=== PATIENT | female | born 1955 | race Caucasian/White ===

== ENCOUNTER → 2016-10-11 | Outpatient (CLI) | payer MEDICARE, MEDICAID ==
[~2016-10-11] MED LIST: BUSPAR5 MG PO; CLONIDINE HCL0.2 MG PO; GLIPIZIDE XL2.5 M1 PO; LISINOPRIL HCTZ1 TA1 PO; METHIMAZOLE5 M1 PO; NAPROSYN500 MG PO; TENORMIN50 MG PO; VITAMIN D5000 I3 PO
[2016-10-11 11:56] LABS: BASO # 0.1 10*3/uL (0.0-0.1); BASO % 0.6 % (0.0-1.0); EOS # 0.3 10*3/uL (0.0-0.4); EOS % 2.7 % (1.0-4.0); HEMATOCRIT 42.4 % (37.0-47.0); HEMOGLOBIN 14.1 g/dl (12.0-16.0); LYMPH % 30.4 % (27.0-41.0); MEAN CELL VOLUME 92.4 fl (81.0-99.0); MEAN CORPUSCULAR HGB 30.7 pg (27.0-31.0); MEAN CORPUSCULAR HGB CONC 33.3 g/dl (33.0-37.0); MEAN PLATELET VOLUME 9.9 fl (9.6-12.3); MONO # 0.8 10*3/uL (0.1-1.0); MONO % 8.3 % (3.0-9.0); NEUT # 5.7 10*3/uL (2.3-7.9); NEUT % 57.7 % (47.0-73.0); PLATELET COUNT AUTOMATED 237 10*3/uL (130-400); RED BLOOD COUNT 4.59 10*6/uL (4.10-5.10); RED CELL DISTRI WIDTH 12.8 % (0-14.5); WHITE BLOOD COUNT 9.9 10*3/uL (4.8-10.8)
[2016-10-11 12:14] LABS: HEMOGLOBIN A1c 8.3 % (4.8-5.6)
[2016-10-11 12:20] LABS: ALBUMIN 3.5 gm/dl (3.1-4.5); BILIRUBIN, TOTAL 0.2 mg/dl (0.2-1.0); TOTAL PROTEIN 7.6 gm/dL (6.4-8.2)
[2016-10-11 12:26] LABS: CHOLESTEROL 212 mg/dL (<200); HDL CHOLESTEROL 34 mg/dl (40-60); TRIGLYCERIDES 431 mg/dl (<150)
[2016-10-11 12:27] LABS: THYROID STIM HORMONE (HS) < 0.005 uIU/ml (0.358-4.75)
== END | disposition home or self-care (01) ==
LOC: LAB 11:20
PROVIDERS: Internal Medicine
DX: E11.65 Type 2 diabetes mellitus with hyperglycemia (principal); I10 Essential (primary) hypertension; E05.90 Thyrotoxicosis, unspecified without thyrotoxic crisis or storm; E78.5 Hyperlipidemia, unspecified

== ENCOUNTER → 2016-10-25 | Outpatient (CLI) | payer MEDICARE, MEDICAID ==
[2016-10-27 07:05] LABS: THYROID PEROXIDASE (TPO) AB 13 IU/mL (0-34)
[2016-10-27 11:04] LABS: THYROGLOBULIN ANTIBODY <1.0 IU/mL (0.0-0.9)
== END | disposition home or self-care (01) ==
LOC: LAB 12:32
PROVIDERS: Internal Medicine
DX: E11.9 Type 2 diabetes mellitus without complications (principal); E05.90 Thyrotoxicosis, unspecified without thyrotoxic crisis or storm

== ENCOUNTER → 2017-05-02 | Outpatient (CLI) | payer MEDICARE, MEDICAID ==
[2017-05-02 11:44] LABS: BASO % 0.4 % (0.0-1.0); EOS # 0.2 10*3/uL (0.0-0.4); EOS % 2.7 % (1.0-4.0); HEMATOCRIT 38.2 % (37.0-47.0); HEMOGLOBIN 12.5 g/dl (12.0-16.0); LYMPH # 1.8 10*3/uL (1.3-4.4); LYMPH % 22.3 % (27.0-41.0); MEAN CELL VOLUME 92.3 fl (81.0-99.0); MEAN CORPUSCULAR HGB 30.2 pg (27.0-31.0); MEAN CORPUSCULAR HGB CONC 32.7 g/dl (33.0-37.0); MEAN PLATELET VOLUME 9.8 fl (9.6-12.3); MONO # 0.6 10*3/uL (0.1-1.0); MONO % 6.9 % (3.0-9.0); NEUT # 5.4 10*3/uL (2.3-7.9); NEUT % 67.3 % (47.0-73.0); PLATELET COUNT AUTOMATED 222 10*3/uL (130-400); RED BLOOD COUNT 4.14 10*6/uL (4.10-5.10); RED CELL DISTRI WIDTH 12.4 % (0-14.5); WHITE BLOOD COUNT 8.1 10*3/uL (4.8-10.8)
[2017-05-02 12:06] LABS: HEMOGLOBIN A1c 7.7 % (4.8-5.6)
[2017-05-02 12:12] LABS: ALBUMIN 3.3 gm/dl (3.1-4.5); ALKALINE PHOSPHATASE 113 U/L (45-117); BILIRUBIN, TOTAL 0.2 mg/dl (0.2-1.0); BUN 33 mg/dl (7-24); CARBON DIOXIDE 25 mmol/L (21-32); CHLORIDE 106 mmol/L (98-107); CHOLESTEROL 207 mg/dL (<200); EST GLOM FILT AFRICAN AMERICAN 36 ml/min; GLUCOSE 264 mg/dL (65-99); HDL CHOLESTEROL 33 mg/dl (40-60); LDL CHOLESTEROL 101 mg/dL (9-159); SGOT/AST 15 IU/L (3-35); SGPT/ALT 16 U/L (12-78); SODIUM 138 mmol/L (136-145); TOTAL PROTEIN 7.6 gm/dL (6.4-8.2); TRIGLYCERIDES 366 mg/dl (<150); VLDL CHOLESTEROL 73 mg/dL (6-40)
[2017-05-02 12:21] LABS: THYROID STIM HORMONE (HS) < 0.005 uIU/ml (0.358-4.75)
== END | disposition home or self-care (01) ==
LOC: LAB 11:17
PROVIDERS: Family Medicine
DX: Z00.01 Encounter for general adult medical examination with abnormal findings (principal); I12.9 Hypertensive chronic kidney disease with stage 1 through stage 4 chronic kidney disease, or unspecified chronic kidney disease; N18.2 Chronic kidney disease, stage 2 (mild); E05.00 Thyrotoxicosis with diffuse goiter without thyrotoxic crisis or storm; E11.65 Type 2 diabetes mellitus with hyperglycemia; E11.22 Type 2 diabetes mellitus with diabetic chronic kidney disease; R21 Rash and other nonspecific skin eruption; E55.9 Vitamin D deficiency, unspecified

== ENCOUNTER → 2017-10-05 | Outpatient (CLI) | payer MEDICARE, MEDICAID | END | disposition home or self-care (01) | LOC: US 11:00 | DX: N20.0 Calculus of kidney (principal); N18.3 Chronic kidney disease, stage 3 (moderate) ==

== ENCOUNTER 2018-02-12 07:47 | Inpatient (IN) | payer OTHER ==
[2018-02-12] VITALS (9 sets, daily range): BP systolic 89–148; BP diastolic 51–91
[~2018-02-12] VITALS: Ht 165.1 cm; Wt 103.0 kg
--- NOTE | ~2018-02-12 | CON ---
[place], [place] REPORT OF CONSULTATION NAME: KALINA LATIF UNIT #: [id number] ROOM: [facility] DOCTOR: CHRISTINA FORREST MD BIRTHDATE: [birth year] DOS: 02/12/2018 REASON FOR CONSULTATION: Acute kidney injury. HISTORY OF PRESENT ILLNESS: This is a 62-year-old female. She was admitted to the hospital, it seems today. She has a history of diabetes, COPD, Graves' disease and what seems to be chronic kidney disease as well. She presented with increasing shortness of breath. Apparently, she saw her PCP a few days ago and was given antibiotics and inhaler and developed nausea and vomiting, and had some fevers and chills. She came to the Emergency Room and had an elevated white count, blood glucose levels over 500 and had a creatinine that was elevated as well. The patient had noted elevated troponin as well as lactic acid. She seems to have been in a wide complex tachycardia, but she had a left bundle branch block. She did have a CT scan, which showed a number of abnormalities. This was done without contrast. There was a pelvic mass it seems and retroperitoneal adenopathy and mediastinal adenopathy. There was severe bilateral hydroureteronephrosis as well. The patient's creatinine was 2.97. Her potassium was in the normal range at 4.8. The patient remained short of breath and was in obvious discomfort. Kim catheter was not placed and she tells me that she was having some discomfort in her bladder area. The patient tells me she has seen a draftsperson, it sounds like in [place] but was unable to elaborate. She was somewhat of a poor historian. ALLERGIES: Listed to PENICILLIN, SULFA DRUGS and KEFLEX. HOME MEDICATIONS: Include BuSpar, vitamin D, clonidine, vitamin B12, glipizide, lisinopril/hydrochlorothiazide, Tapazole, metoprolol. PAST MEDICAL HISTORY: 1. Chronic kidney disease as stated above. 2. Anxiety. 3. Hypertension. 4. Vitamin D deficiency. 5. Diabetes mellitus. 6. Hypertension. 7. Hyperthyroidism. 8. COPD. 9. Vitamin B12 deficiency. FAMILY HISTORY: No reported history of chronic kidney disease, otherwise noncontributory. SOCIAL HISTORY: No alcohol or illicit drugs. She does have a history of extensive smoking and quit earlier this year. REVIEW OF SYSTEMS: As per HPI, otherwise a 10-point review of systems was reviewed and was negative. PHYSICAL EXAMINATION: VITAL SIGNS: Temperature afebrile, pulse 123, respiratory rate was in 30s, [place], [place] REPORT OF CONSULTATION NAME: KALINA LATIF UNIT #: [id number] ROOM: [facility] DOCTOR: CHRISTINA FORREST MD BIRTHDATE: [birth year] blood pressure 132/91. HEENT: No JVD. Sclerae are anicteric. Mucous membranes appear dry. Pharynx is clear. NECK: Supple. Trachea midline. There is no lymphadenopathy or thyromegaly. LUNGS: Had diminished breath sounds with occasional rhonchi. She was dyspneic, but did not seem to be using accessory muscles of respiration. HEART: Tachycardic, S1, S2. No rub, thrill or gallop. ABDOMEN: Mildly distended, soft and nontender to palpation. Cannot appreciate organomegaly. EXTREMITIES: Had no edema. There is no lower extremity lymphadenopathy. Distal pulses are 2+. SKIN: Showed overt rash. There is no petechia or purpura. Skin temperature is warm. NEUROLOGIC: She was awake. She was following commands. Cranial nerves appear to be intact. DIAGNOSTIC DATA: Noted above. There was recent troponin of 3.92, glucose of 595, BUN 54, creatinine 2.97, sodium 128, potassium 4.8, magnesium 1.8, albumin 3.3. Hemoglobin 9.7, white count of 17.5, platelets of 441. IMPRESSION: 1. Acute on chronic kidney disease. Her true baseline creatinine is not clear. Looking at the old records, it seems she has had elevated creatinine levels in the upper ones range. It seems she may have likely an acute element related to obstructive uropathy as well as possible prerenal factors. 2. What appears to be an acute [place] with elevated troponin in the setting of a left bundle branch block. 3. Bilateral hydronephrosis. 4. Pelvic mass. 5. Anemia. 6. Leukocytosis. 7. Diabetes mellitus. 8. Mild lactic acid elevation. 9. Hyponatremia, likely related to impaired free water excretion in the setting of her acute on chronic kidney disease. PLAN: 1. Would place a Kim catheter. 2. Cardiology consult. 3. Send blood cultures. Broad-spectrum antibiotics for now. 4. The patient needs a Urology consult. She may need a cystoscopy with bilateral stenting or nephrostomy tube placement. Would start with a Kim catheter and await input from Urology. 5. Dose meds for current creatinine clearance. Avoid using Lovenox. 6. Replace electrolytes as needed. 7. Can use diuretics as felt necessary, although her true volume status is not clear. 8. The patient has a number of complex issues and would strongly recommend transferring to a tertiary care center. [place], [place] REPORT OF CONSULTATION NAME: KALINA LATIF Krystyna UNIT #: [id number] ROOM: [facility] DOCTOR: CHRISTINA FORREST MD BIRTHDATE: [birth year] Thank you for this consultation. CHRISTINA FORREST MD CM:CONSTR:REPORT OF CONSULTATION 1530 02/12/18 2130 interface
--- NOTE | ~2018-02-12 | CON ---
[place], [place] REPORT OF CONSULTATION NAME[facility]IF [id number] UNIT #: [id number] ROOM: [facility] DOCTOR: ROSALVA BENNETT MD BIRTHDATE: [birth year] DOS: 02/12/2018 CARDIOLOGY CONSULT REASON FOR CONSULTATION: Elevated troponin. CLINICAL HISTORY: The patient is a 62-year-old patient with a history of coronary artery disease, tobacco use, hypertension, possible COPD, came to the Emergency Room for "not feeling well." For the past week, she is not feeling well and also she had some nausea and vomiting. She also has shortness of breath with some cough, fever and chills. She denies any chest pain or palpitations. No dizziness, no syncope. She was found to have elevated troponin as well as possible sepsis, renal failure, hyperglycemia, lactic acidosis. She was admitted to the hospital in cardiology consult for further recommendations. At the time of examination, she denies any chest pain or shortness of breath. The patient appears to be really tired and exhausted. Denies any palpitations or dizziness, but apparently she had some decreased urine output at home. No hemoptysis, no headache, no syncope, no orthopnea. Apparently, she quit smoking recently. REVIEW OF SYSTEMS: Review of the 10 systems negative except as mentioned above, especially the patient denies any chest pain or shortness of breath or palpitations. PAST MEDICAL HISTORY: 1. Hypertension. 2. Possible chronic obstructive pulmonary disease. 3. Coronary artery disease, details unknown. 4. Diabetes. 5. History of hypothyroidism. PAST SURGICAL HISTORY: No major surgeries. SOCIAL HISTORY: The patient does not use illicit drugs, does not drink, quit smoking. FAMILY HISTORY: Hypertension, diabetes and strokes. HOME MEDICATIONS: Reviewed. ALLERGIES: THE PATIENT IS ALLERGIC TO PENICILLIN, SULFA AND KEFLEX. PHYSICAL EXAMINATION: VITAL SIGNS: Blood pressure 132/91, pulse 118, respiratory rate 30, weight 102.9 kilos with BMI 37.8. GENERAL: The patient is alert and comfortable. It appears to be ill, but denies any chest pain or shortness of breath. HEENT: Pupils are round and equal. No jaundice. Tongue moist and pharynx clear. NECK: Supple. No distended neck veins. [place], [place] REPORT OF CONSULTATION NAME: KALINA LATIF UNIT #: [id number] ROOM: [facility] DOCTOR: SABRINA PHAM,ROSALVA BIRTHDATE: [birth year] CHEST: Symmetrical, nontender. LUNGS: A few scattered rhonchi. Fair air entry bilaterally. HEART: Regular rhythm, no S3. Grade 1/6 systolic murmur. The patient is still tachycardic during the examination. No palpable thrills. ABDOMEN: Benign, nontender. Bowel sounds normal, no pulsatile masses. EXTREMITIES: Showed the patient had 1+ edema. Distal pulses are palpable. SKIN: Cool, but dry. No cyanosis, no clubbing. RECTAL: Deferred. REVIEW OF THE DIAGNOSTIC TESTS: EKG showed sinus rhythm, sinus tachycardia, left bundle-branch block with ST-T changes. CBC, chemistry and cardiac enzymes reviewed. The troponin was elevated. Potassium 4.8, creatinine 2.94, hemoglobin 9.7, magnesium 1.8, lactic acid 3.5, TSH 0.418, glucose 595. CT abdomen and pelvis reviewed showed a large pelvic mass with suggestive of possible metastatic disease. IMPRESSION: 1. Non-ST elevation myocardial infarction. 2. Acute renal failure. 3. Sinus tachycardia. 4. Left bundle-branch block. 5. Possible sepsis. 6. Anemia. 7. Hyperglycemia. 8. Lactic acidosis. 9. Abnormal CT of the large pelvic mass as well as multiple possible metastatic diseases. 10. History of hypertension. RECOMMENDATIONS: 1. The patient denies any chest pain. 2. She is not a candidate for any cardiac interventional procedures at this time due to her acute renal failure and possible sepsis and severe hyperglycemia. 3. She was given aspirin today. Continue aspirin, beta-blockers and start heparin. 4. medication for her sinus tachycardia. 5. She was seen by the veneer joiner for acute renal failure. 6. The patient's condition is critical and prognosis is extremely guarded. 7. I would recommend transferring her to a tertiary care facility. 8. There is no family at bedside at the time of my examination. 9. Case was discussed with nursing staff as well as the resident physician, Dr. Ybarra. [place], [place] REPORT OF CONSULTATION NAME: BHAVYAKALINA UNIT #: [id number] ROOM: [facility] DOCTOR: SABRINA PHAM,ROSALVA BIRTHDATE: [birth year] ROSALVA BENNETT MD CM:CONSTR:REPORT OF CONSULTATION 1936 02/12/18 2322 interface
[~2018-02-12 07:47] MED LIST changes: -CLONIDINE HCL0.2 MG PO; +CLONIDINE HCL0.3 MG PO; +GLIPIZIDE ER5 MG PO; -GLIPIZIDE XL2.5 M1 PO; -LISINOPRIL HCTZ1 TA1 PO; +LISINOPRIL-HCT1 EACH PO
[2018-02-12 08:19] LABS: BASO # 0.1 10*3/uL (0.0-0.1); BASO % 0.8 % (0.0-1.0); EOS # 0.2 10*3/uL (0.0-0.4); EOS % 1.2 % (1.0-4.0); HEMOGLOBIN 9.7 g/dl (12.0-16.0); LYMPH # 1.1 10*3/uL (1.3-4.4); LYMPH % 6.5 % (27.0-41.0); MEAN CELL VOLUME 91.7 fl (81.0-99.0); MEAN CORPUSCULAR HGB 29.7 pg (27.0-31.0); MEAN CORPUSCULAR HGB CONC 32.3 g/dl (33.0-37.0); MEAN PLATELET VOLUME 10.5 fl (9.6-12.3); MONO # 0.7 10*3/uL (0.1-1.0); MONO % 3.7 % (3.0-9.0); NEUT # 15.3 10*3/uL (2.3-7.9); NEUT % 87.2 % (47.0-73.0); PLATELET COUNT AUTOMATED 441 10*3/uL (130-400); RED BLOOD COUNT 3.27 10*6/uL (4.10-5.10); RED CELL DISTRI WIDTH 14.2 % (0-14.5); WHITE BLOOD COUNT 17.5 10*3/uL (4.8-10.8)
[2018-02-12 08:29] LABS: ACT PARTIAL THROMBO TIME 25.1 SECONDS (20.8-31.5)
[2018-02-12 08:37] LABS: ALBUMIN 3.3 gm/dl (3.1-4.5); CREATININE 2.97 mg/dL (0.55-1.02); POTASSIUM 4.8 mmol/L (3.5-5.1); TOTAL PROTEIN 8.2 gm/dL (6.4-8.2)
[2018-02-12 08:44] LABS: TROPONIN I 0.735 ng/ml (<0.045)
[2018-02-12] MEDS ORDERED: METHIMAZOLE5 M1 PO (09:56)
[2018-02-12] MEDS ORDERED: VITAMIN B-121000 MC2 PO (09:57)
[2018-02-12] MEDS ORDERED: METOPROLOL TAR100 M1 PO (09:58)
[2018-02-12 13:50] LABS: BILIRUBIN NEGATIVE (NEGATIVE); BLOOD NEGATIVE (NEGATIVE); CLARITY CLEAR (CLEAR); COLOR YELLOW (YELLOW); GLUCOSE 3+ (NEGATIVE); KETONE NEGATIVE (NEGATIVE); LEUKO ESTERASE NEGATIVE (NEGATIVE); NITRITE NEGATIVE (NEGATIVE); SPECIFIC GRAVITY 1.015 (1.005-1.030); UROBILINOGEN 0.2 E.U./dl (0.2-1.0)
[2018-02-12 13:55] LABS: BACTERIA TRACE
[2018-02-12] MEDS ORDERED: VANCOMYCIN HYDRO1 GM IV (16:45)
[2018-02-12] MEDS ORDERED: LEVAQUIN750 M1 IV (16:45)
== END 2018-02-12 19:30 | disposition short-term general hospital (02) | DRG 871 ==
LOC: ED 07:47 → EDHOLD 08:54 → ICCU 09:28
PROVIDERS: Emergency Medicine
DX: A41.9 Sepsis, unspecified organism (principal); I21.4 Non-ST elevation (NSTEMI) myocardial infarction; J96.00 Acute respiratory failure, unspecified whether with hypoxia or hypercapnia; R65.21 Severe sepsis with septic shock; J18.9 Pneumonia, unspecified organism; J90 Pleural effusion, not elsewhere classified; E11.22 Type 2 diabetes mellitus with diabetic chronic kidney disease; C54.1 Malignant neoplasm of endometrium; D64.9 Anemia, unspecified; N17.9 Acute kidney failure, unspecified; N13.30 Unspecified hydronephrosis; J44.1 Chronic obstructive pulmonary disease with (acute) exacerbation; E27.49 Other adrenocortical insufficiency; J44.0 Chronic obstructive pulmonary disease with (acute) lower respiratory infection; E87.1 Hypo-osmolality and hyponatremia; N18.3 Chronic kidney disease, stage 3 (moderate); I12.9 Hypertensive chronic kidney disease with stage 1 through stage 4 chronic kidney disease, or unspecified chronic kidney disease; E53.8 Deficiency of other specified B group vitamins; E55.9 Vitamin D deficiency, unspecified; I25.10 Atherosclerotic heart disease of native coronary artery without angina pectoris; R19.00 Intra-abdominal and pelvic swelling, mass and lump, unspecified site; E11.65 Type 2 diabetes mellitus with hyperglycemia; E05.00 Thyrotoxicosis with diffuse goiter without thyrotoxic crisis or storm; I44.7 Left bundle-branch block, unspecified; Z79.899 Other long term (current) drug therapy; Z88.0 Allergy status to penicillin; Z88.2 Allergy status to sulfonamides; Z88.1 Allergy status to other antibiotic agents; Z82.49 Family history of ischemic heart disease and other diseases of the circulatory system; Z83.3 Family history of diabetes mellitus; Z80.9 Family history of malignant neoplasm, unspecified; Z82.3 Family history of stroke; Z79.4 Long term (current) use of insulin; Z80.1 Family history of malignant neoplasm of trachea, bronchus and lung